=== PATIENT | male | born 1960 | race Caucasian/White ===

== ENCOUNTER 2025-06-24 13:42 | Outpatient (CLI) | payer MEDICARE, BC, SELFPAY | END 2025-06-24 13:43 | disposition home or self-care (01) | PROVIDERS: PCP Internal Medicine; Referring Provider Internal Medicine; Visit Provider Physician Assistant Surgical | DX: T81.31XA Disruption of external operation (surgical) wound, not elsewhere classified, initial encounter (principal); Z79.899 Other long term (current) drug therapy; F17.200 Nicotine dependence, unspecified, uncomplicated | CPT/HCPCS: G0463 ==